=== PATIENT | female | born 1960 | race Caucasian/White ===

== ENCOUNTER 2017-02-07 10:22 | Day surgery (SDC) | payer OTHER ==
[2017-02-05 10:45] VITALS: BMI 28.2
[~2017-02-07 10:22] MED LIST: LACTATED RINGERS 1,000 ML IV SCH
[2017-02-07 10:54] VITALS: RESP 16; TEMP 97.8
[2017-02-07] MEDS ORDERED: LIDOCAINE 1% 20 ML VIAL (10MG/ML) FOR IV START INTRADERMA ONE (11:04)
[2017-02-07] MEDS ORDERED: LIDOCAINE 1% INJ 10MG/ML (20 ML MDV) ONE (11:24)
[2017-02-07] MEDS ORDERED: fentaNYL (PF) 50 MCG/ML 2 ML AMP ONE (11:24)
[2017-02-07] MEDS ORDERED: PROPOFOL 10 MG/ML 20 ML VIAL IV ONE (11:24)
[2017-02-07] MEDS ORDERED: GLYCOPYRROLATE 0.2 MG/ML 2 ML VIAL ONE (11:24)
[2017-02-07] MEDS ORDERED: MIDAZOLAM 2 MG/2 ML VIAL ONE (11:24)
--- NOTE | 2017-02-07 11:29 | P.GSHP ---
History of Present Illness H&P Date: 02/07/17 Chief Complaint: Anemia Patient here today for upper and lower endoscopy. She was told she was anemic. Last colonoscopy 7 years ago or so. She has a history of prior lap band placement. No abdominal pain or heartburn. She has a personal history of breast cancer and strong family history of breast cancer and other malignancies. Past Medical History Past Medical History: Cancer, Hypertension, Thyroid Disorder Additional Past Medical History / Comment(s): ANEMIA. BREAST CANCER RT SIDE History of Any Multi-Drug Resistant Organisms: None Reported Past Surgical History: Appendectomy, Back Surgery, Bariatric Surgery, Breast Surgery, Cholecystectomy, Hysterectomy Additional Past Surgical History / Comment(s): DOUBLE MASTECTOMY WITH RECONSTRUCTION AND BREAST IMPLANTS. LAP BAND 2007. COLONOSCOPY. EGD Past Anesthesia/Blood Transfusion Reactions: No Reported Reaction Smoking Status: Former smoker - Past Family History Mother Family Medical History: Cancer Sister(s) Family Medical History: Cancer Medications and Allergies Home Medications Medication Instructions Recorded Confirmed Type Aspirin [Adult Low Dose Aspirin EC] 81 mg PO DAILY 02/05/17 02/07/17 History Calcium Carbonate/Vitamin D3 1 tab PO DAILY 02/05/17 02/07/17 History [Calcium 500-Vit D3 200 Tablet] Cetirizine HCl [Zyrtec] 10 mg PO DAILY 02/05/17 02/07/17 History Escitalopram Oxalate [Lexapro] 10 mg PO DAILY 02/05/17 02/07/17 History Ferrous Sulfate [Feosol] 325 mg PO DAILY 02/05/17 02/07/17 History Levothyroxine Sodium [Synthroid] 100 mcg PO DAILY 02/05/17 02/07/17 History Lisinopril-Hctz 20-12.5 mg 1 tab PO DAILY 02/05/17 02/07/17 History [Zestoretic 20-12.5] Multivitamins, Thera [Multivitamin 1 tab PO DAILY 02/05/17 02/07/17 History (formulary)] Allergies Allergy/AdvReac Type Severity Reaction Status Date / Time clindamycin Allergy Chest Pain Verified 02/07/17 10:41 Penicillins Allergy Swelling Verified 02/07/17 10:41 cefoxitin [From Mefoxin] AdvReac Rash/Hives Verified 02/07/17 10:41 hydrocortisone AdvReac Rash/Hives Verified 02/07/17 10:41 [From Cortizone-10] Sulfa (Sulfonamide AdvReac Rash/Hives Verified 02/07/17 10:41 Antibiotics) sulfamethoxazole AdvReac Rash/Hives Verified 02/07/17 10:41 [From Bactrim] trimethoprim [From Bactrim] AdvReac Rash/Hives Verified 02/07/17 10:41 Surgical - Exam Vital Signs Temp Pulse Resp BP Pulse Ox 97.8 F 71 16 128/69 100 02/07/17 10:51 02/07/17 10:51 02/07/17 10:51 02/07/17 10:51 02/07/17 10:51 Physical exam: General: Well-developed, well-nourished HEENT: Normocephalic, sclerae nonicteric Abdomen: Nontender, nondistended Extremities: No edema Neuro: Alert and oriented Assessment and Plan (1) Anemia Narrative/Plan: Will proceed with upper and lower endoscopy. Status: Acute
--- NOTE | 2017-02-07 11:55 | P.PCN ---
Date of Procedure: 02/07/17 Preoperative Diagnosis: Postoperative Diagnosis: Procedure(s) Performed: PREOPERATIVE DIAGNOSIS: Anemia POSTOPERATIVE DIAGNOSIS: Mild duodenitis, diverticulosis PROCEDURE: 1. EGD with biopsy 2. Colonoscopy ANESTHESIA: MAC SURGEON: Seven Crum M.D. SPECIMENS: Duodenum ENDOSCOPIC PROCEDURE: The patient was on the endoscopy table in the left decubitus position. The Olympus gastroscope was inserted into the oropharynx and passed under direct visualization to the region of the third portion of the duodenum. From that point the scope was slowly withdrawn inspecting all surfaces carefully. Mild duodenitis was noted. A single biopsy took place. The pylorus was widely patent. The stomach was carefully inspected. There was no visible gastritis present. Retroflexion revealed changes of previous gastric banding. No evidence of erosion was seen. The patient's gastric pouch was slightly larger than expected. The esophagus was then carefully examined. There were no neoplastic inflammatory or polypoid lesions throughout the visualized esophagus. The patient was kept on the endoscopy table in the left decubitus position. The Olympus colonoscope was inserted into the anus and passed under direct visualization to the base of the cecum. The appendiceal orifice was visualized. From that point the scope was slowly withdrawn inspecting all surfaces carefully. There were no neoplastic inflammatory or polypoid lesions throughout the cecum, ascending, transverse, descending, sigmoid and rectum. There was mild to moderate diverticulosis noted throughout the colon. Digital rectal examination was normal. The patient was taken to the recovery room in stable condition per anesthesia guidelines. RECOMMENDATIONS: Await biopsy results. Continue anemia workup Implants: Indications for Procedure: Operative Findings: Description of Procedure:
[2017-02-07 12:34] VITALS: BP 118/76; PULSE 62
== END 2017-02-07 12:39 | disposition home or self-care (01) ==
LOC: ORWHC2ENDO 10:22
PROVIDERS: ATTEND Surgery
DX: K29.80 Duodenitis without bleeding (principal); K57.30 Diverticulosis of large intestine without perforation or abscess without bleeding; D64.9 Anemia, unspecified; Z98.84 Bariatric surgery status; I10 Essential (primary) hypertension; E07.9 Disorder of thyroid, unspecified; Z87.891 Personal history of nicotine dependence; Z79.82 Long term (current) use of aspirin; Z79.899 Other long term (current) drug therapy; Z85.3 Personal history of malignant neoplasm of breast; Z80.3 Family history of malignant neoplasm of breast; Z88.1 Allergy status to other antibiotic agents; Z88.0 Allergy status to penicillin; Z88.2 Allergy status to sulfonamides; Z88.8 Allergy status to other drugs, medicaments and biological substances
CPT/HCPCS: 88305; 45378; 43239; J2250; J2001; J3010; J2704

== ENCOUNTER → 2021-04-10 | Outpatient (CLI) | payer BC, OTHER ==
[2021-04-10 15:46] VITALS: BP 168/90; PULSE 87; TEMP 98.2; BMI 29.3
--- NOTE | 2021-04-10 16:25 | P.BASOAP ---
Subjective Progress Note Date: 04/10/21 Principal diagnosis: Abdominal pain Patient on our service. Underwent previous laparoscopic banding. Patient lately has had heaviness, abdominal pressure, increased flatulence, abdominal pain for the last 3 weeks or so. Slightly better over the last 2 days. No fevers. No change in bowel habits. No rectal bleeding. Underwent EGD and colonoscopy a few years ago. Patient has had increased heartburn. Started [id number] antiacid therapy in the form of Pepcid. Patient denies vomiting or reflux. No dysphagia. She has gained 10 pounds in the last year. She is leaving for [place] in April. She has tried probiotics. Patient with personal history of triple negative breast cancer. Patient with extensive family history of various malignancies. Objective - Vital Signs Vital signs: Vital Signs Temp 98.2 F 04/10/21 15:41 Pulse 87 04/10/21 15:41 Resp BP 168/90 04/10/21 15:41 Pulse Ox Intake & Output 04/09/21 04/10/21 04/10/21 18:59 06:59 18:59 Weight 82.554 kg - Exam Abdomen: Soft, mild diffuse tenderness, nondistended Assessment/Plan (1) Abdominal pain Narrative/Plan: 60-year-old female with abdominal pain. Rule out diverticulitis or other abdominal pathology. Will obtain CT abdomen and pelvis at this time. Continue Pepcid. If symptoms persist and CAT scan normal recommend GI evaluation. This can be performed in [place]. Plan: Date: 04/10/21 Initial Weight: Initial BMI: Current Weight: 82.554 kg Current BMI: 29.3 Type of Surgery: Total Volume in Band: Previous Volume: Volume Removed: Volume Added: Band Size:
== END ==
LOC: BARWHC3 14:32
PROVIDERS: ATTEND Surgery
DX: R10.9 Unspecified abdominal pain (principal); Z88.0 Allergy status to penicillin; Z88.1 Allergy status to other antibiotic agents; Z88.2 Allergy status to sulfonamides; Z88.5 Allergy status to narcotic agent; Z87.891 Personal history of nicotine dependence
CPT/HCPCS: 99211

== ENCOUNTER → 2021-04-25 | Outpatient (CLI) | payer BC ==
[2021-04-25 14:16] LABS: African American GFR (CKD) >90 (>60 ml/min/1.73 sqM); Blood Urea Nitrogen 13 mg/dL (7-17); Non-African American GFR(CKD) >90 (>60 ml/min/1.73 sqM)
--- NOTE | 2021-04-25 14:51 | CT ---
EXAMINATION TYPE: CT abdomen pelvis w con DATE OF EXAM: 04/25/2021 COMPARISON: None INDICATION: Abdominal pain, bloating and gas x couple months. DLP: 871.1 mGycm, Automated exposure control for dose reduction was used. CONTRAST: 100 mL of Isovue M300. Study performed with Oral Contrast TECHNIQUE: Axial images were obtained from above the diaphragm to the pubic rami in the axial plane a t 5 mm thick sections. Reconstructed images are reviewed on the computer in the coronal plane. FINDINGS: Limited CT sections are obtained the lung bases. The lung bases are clear. There is a moderate size hiatal hernia. This could be dilatation of the distal esophagus contains an air-fluid level. This is above the patient's lap band. CT ABDOMEN: Liver: There is a hypodense masslike area at the superior right lobe hepatic cortex measuring 2.1 x 1 .9 cm. Series 3 image 11. This area is not well-defined on the delayed images. There is irregular hyp odensity measuring 5.6 x 1.8 cm within the inferior lateral right lobe liver which has a more homogen ous appearance on delayed images. Series 3 image 24. Findings could be related to hemangioma. MRI wit h contrast however is recommended to evaluate for possible neoplastic mass. Spleen: Normal Pancreas: Normal Adrenal glands: The adrenal glands are normal. Gallbladder: Normal Kidneys: No masses are evident. No hydronephrosis is present. No cysts are present. Delayed images were obtained through the kidneys, which remain unremarkable. Aorta: Normal Inferior vena cava: Normal. CT PELVIS: Loops of bowel within the abdomen and pelvis are normal. Scattered diverticuli within the sigmoid col on. No acute diverticulitis is evident. There are loops of bowel which are incompletely distended or lack oral contrast limiting their evaluation. Appendix: Normal as visualized. Urinary bladder: Normal. Genitourinary structures: Uterus and ovaries are not identified. Osseous structures: No suspicious lytic or sclerotic lesions. IMPRESSIONS: 1. 2 irregular hypodensities within the liver may have some peripheral enhancement but are incomplet ronen enhancing on CT. Consider ultrasound for correlation. MRI with contrast recommended for additiona l workup. Findings may represent hemangiomas. Neoplasm is not excluded on the basis of this exam. 2. Dilated distal esophagus versus hiatal hernia above the level of the lap band. 3. Diverticulosis without acute diverticulitis.
== END | disposition home or self-care (01) ==
LOC: RADCTMAIN 12:38
PROVIDERS: ATTEND Surgery
DX: K76.89 Other specified diseases of liver (principal); K22.8 Other specified diseases of esophagus; K57.30 Diverticulosis of large intestine without perforation or abscess without bleeding
CPT/HCPCS: 82565; 84520; 74177; 36415; Q9967 ×2

== ENCOUNTER → 2021-05-29 | Outpatient (CLI) | payer BC ==
[2021-05-29 16:22] VITALS: BP 148/100; PULSE 91; RESP 16; TEMP 98.1; BMI 29.0
--- NOTE | 2021-05-29 19:47 | P.BASOAP ---
Subjective Progress Note Date: 05/29/21 Principal diagnosis: Morbid obesity Patient returns for evaluation. Had a CAT scan showing some liver lesions. Had a repeat MRI performed just yesterday showing a benign nature to these lesions. CAT scan and MRI apparently also showed possible hiatal hernia versus distal esophageal dilation. Has had some increased reflux lately. No vomiting. Objective - Vital Signs Vital signs: Vital Signs Temp 98.1 F 05/29/21 16:19 Pulse 91 05/29/21 16:19 Resp 16 05/29/21 16:19 BP 148/100 05/29/21 16:19 Pulse Ox Intake & Output 05/29/21 05/29/21 05/30/21 06:59 18:59 06:59 Weight 81.647 kg - Exam Abdomen: Soft, nontender, nondistended Assessment/Plan (1) Morbid obesity Narrative/Plan: Patient with increased reflux and recent CAT scan showing possible esophageal dilation. Will loosen the patient's band at this time. We believe 6.5 cc in band at this time. The patient's lap band port was palpated. The site was aseptically prepped. The Jones needle was advanced into the port. Aspiration took place. A total of 1.5ml of fluid was removed. Pressure was held and a sterile dressing was applied. Plan: Date: 05/29/21 Initial Weight: 108.862 kg Initial BMI: 38.7 Current Weight: 81.647 kg Current BMI: 29.0 Type of Surgery: Total Volume in Band: Previous Volume: Volume Removed: Volume Added: Band Size:
== END ==
LOC: BARWHC3 15:26
PROVIDERS: ATTEND Surgery
DX: E66.01 Morbid (severe) obesity due to excess calories (principal); Z46.51 Encounter for fitting and adjustment of gastric lap band; Z68.29 Body mass index [BMI] 29.0-29.9, adult; Z88.0 Allergy status to penicillin; Z88.1 Allergy status to other antibiotic agents; Z88.2 Allergy status to sulfonamides; Z88.8 Allergy status to other drugs, medicaments and biological substances; Z87.891 Personal history of nicotine dependence
CPT/HCPCS: 99212

== ENCOUNTER → 2021-12-10 | Outpatient (CLI) | payer BC ==
[2021-12-10 14:14] VITALS: BP 144/83; PULSE 78; TEMP 98.1; BMI 32.4
--- NOTE | 2021-12-10 15:10 | P.HPBAR ---
Bariatric H&P - History & Physicial H&P Date: 12/10/21 History & Physicial: Visit/CC: lap band f/u Patient initial contact: Initial weight: 108.862 kg Initial weight in pounds: 240.00 Height: 5 ft 6 in Initial BMI: 38.7 Last weight: Current weight: 91.172 kg Current weight in pounds: 201.00 Current BMI: 32.4 [place] body weight (based on NIH guidelines): 58.967 kg Excess body weight loss: 35.4% The patient is a 61 year-old F who presents for Bariatric Assessment. Patient presents today for LAP-BAND follow-up. She has complaints of hunger she wished to have her band fill. Past Medical History Past Medical History: Cancer, Hypertension, Thyroid Disorder Additional Past Medical History / Comment(s): ANEMIA. BREAST CANCER RT SIDE History of Any Multi-Drug Resistant Organisms: None Reported Past Surgical History: Appendectomy, Back Surgery, Bariatric Surgery, Breast Surgery, Cholecystectomy, Hysterectomy Additional Past Surgical History / Comment(s): DOUBLE MASTECTOMY WITH RECONSTRUCTION AND BREAST IMPLANTS. LAP BAND 2007. COLONOSCOPY. EGD Past Anesthesia/Blood Transfusion Reactions: No Reported Reaction Smoking Status: Never smoker - Past Family History Mother Family Medical History: Cancer Sister(s) Family Medical History: Cancer Surgical - Exam Vital Signs Temp Pulse BP 98.1 F 78 144/83 12/10/21 14:09 12/10/21 14:09 12/10/21 14:09 - General well developed, well nourished, no distress - Eyes PERRL - ENT normal pinna - Neck no masses - Respiratory normal expansion - Cardiovascular Rhythm: regular - Abdomen Abdomen: soft, non tender Bariatric Assessment & Plan Plan: 's LAP-BAND was just. She had 1 mL added to the band. She currently has 5.5 in the band. She will follow-up in 4 weeks. Bariatric Checklist Checklist: Plan: Checklist: EGD: 1. Hiatal hernia: 2. H. Pylori: HgbA1c: Vitamin D: Smoking: Former smoker Primary care physician referral: Psychiatry clearance: Cardiology clearance: Sleep study: Diet journal: VTE risk score: VTE risk level: Rehab needs at discharge:
== END ==
LOC: BARWHC3 13:50
PROVIDERS: ATTEND Surgery
DX: Z46.51 Encounter for fitting and adjustment of gastric lap band (principal); I10 Essential (primary) hypertension; Z88.0 Allergy status to penicillin; Z88.1 Allergy status to other antibiotic agents; Z88.5 Allergy status to narcotic agent; Z88.2 Allergy status to sulfonamides; Z87.891 Personal history of nicotine dependence
CPT/HCPCS: 99212

== ENCOUNTER → 2022-01-14 | Outpatient (CLI) | payer BC ==
[2022-01-14 14:19] VITALS: BP 138/84; PULSE 64; RESP 12; TEMP 97.9; BMI 32.1
--- NOTE | 2022-01-14 14:52 | P.HPBAR ---
Bariatric H&P - History & Physicial H&P Date: 01/14/22 History & Physicial: Visit/CC: lapband fill Patient initial contact: Initial weight: 108.862 kg Initial weight in pounds: 240.00 Height: 5 ft 6 in Initial BMI: 38.7 Last weight: Current weight: 90.265 kg Current weight in pounds: 199.00 Current BMI: 32.1 [place] body weight (based on NIH guidelines): 58.967 kg Excess body weight loss: 37.2% The patient is a 61 year-old F who presents for Bariatric Assessment. Patient presents today for LAP-BAND adjustment. She is currently hungry. Past Medical History Past Medical History: Cancer, Hypertension, Thyroid Disorder Additional Past Medical History / Comment(s): ANEMIA. BREAST CANCER RT SIDE History of Any Multi-Drug Resistant Organisms: None Reported Past Surgical History: Appendectomy, Back Surgery, Bariatric Surgery, Breast Surgery, Cholecystectomy, Hysterectomy Additional Past Surgical History / Comment(s): DOUBLE MASTECTOMY WITH RECONSTRUCTION AND BREAST IMPLANTS. LAP BAND 2007. COLONOSCOPY. EGD Past Anesthesia/Blood Transfusion Reactions: No Reported Reaction Past Psychological History: Anxiety Smoking Status: Never smoker Past Alcohol Use History: Occasional Additional Past Alcohol Use History / Comment(s): QUIT SMOKING 1992 Past Drug Use History: None Reported - Past Family History Mother Family Medical History: Cancer Sister(s) Family Medical History: Cancer Surgical - Exam Vital Signs Temp Pulse Resp BP 97.9 F 64 12 138/84 01/14/22 14:14 01/14/22 14:14 01/14/22 14:14 01/14/22 14:14 - General well developed, well nourished, no distress - Abdomen Abdomen: soft, non tender Bariatric Assessment & Plan Plan: Patient LAP-BAND was adjusted. She had 0.5 mL added to the band. She currently has 6 mL in the band. She'll follow-up in 4 weeks. Bariatric Checklist Checklist: Plan: Checklist: EGD: 1. Hiatal hernia: 2. H. Pylori: HgbA1c: Vitamin D: Smoking: Former smoker Primary care physician referral: Psychiatry clearance: Cardiology clearance: Sleep study: Diet journal: VTE risk score: VTE risk level: Rehab needs at discharge:
== END ==
LOC: BARWHC3 13:21
PROVIDERS: ATTEND Surgery
DX: Z46.51 Encounter for fitting and adjustment of gastric lap band (principal); I10 Essential (primary) hypertension; F41.9 Anxiety disorder, unspecified; Z79.899 Other long term (current) drug therapy; Z87.891 Personal history of nicotine dependence; Z98.84 Bariatric surgery status; Z88.1 Allergy status to other antibiotic agents; Z88.0 Allergy status to penicillin; Z88.2 Allergy status to sulfonamides; Z88.8 Allergy status to other drugs, medicaments and biological substances
CPT/HCPCS: 99212

== ENCOUNTER → 2022-03-04 | Outpatient (CLI) | payer BC ==
[2022-03-04 14:55] VITALS: BP 151/83; PULSE 89; RESP 16; TEMP 98.5; BMI 32.5
--- NOTE | 2022-03-04 15:31 | P.HPBAR ---
Bariatric H&P - History & Physicial H&P Date: 03/04/22 History & Physicial: Visit/CC: band adj Patient initial contact: Initial weight: 108.862 kg Initial weight in pounds: 240.00 Height: 5 ft 6 in Initial BMI: 38.7 Last weight: Current weight: 91.626 kg Current weight in pounds: 202.00 Current BMI: 32.5 [place] body weight (based on NIH guidelines): 58.967 kg Excess body weight loss: 34.5% The patient is a 61 year-old F who presents for Bariatric Assessment. Patient presents today for LAP-BAND adjustment. She currently time. She requested fill her band. Past Medical History Past Medical History: Cancer, Hypertension, Thyroid Disorder Additional Past Medical History / Comment(s): ANEMIA. BREAST CANCER RT SIDE History of Any Multi-Drug Resistant Organisms: None Reported Past Surgical History: Appendectomy, Back Surgery, Bariatric Surgery, Breast Surgery, Cholecystectomy, Hysterectomy Additional Past Surgical History / Comment(s): DOUBLE MASTECTOMY WITH RECONSTRUCTION AND BREAST IMPLANTS. LAP BAND 2007. COLONOSCOPY. EGD Past Anesthesia/Blood Transfusion Reactions: No Reported Reaction Smoking Status: Never smoker - Past Family History Mother Family Medical History: Cancer Sister(s) Family Medical History: Cancer Surgical - Exam Vital Signs Temp Pulse Resp BP 98.5 F 89 16 151/83 03/04/22 14:52 03/04/22 14:52 03/04/22 14:52 03/04/22 14:52 - General well developed, well nourished, moderate distress - Eyes PERRL - ENT normal pinna - Neck no masses - Respiratory normal expansion - Cardiovascular Rhythm: regular - Abdomen Abdomen: soft, non tender Bariatric Assessment & Plan Plan: Patient's LAP-BAND was adjusted. She had 0.5 mL added to the band. She was ill drink without without difficulty. Patient will follow-up in 4 weeks. Bariatric Checklist Checklist: Plan: Checklist: EGD: 1. Hiatal hernia: 2. H. Pylori: HgbA1c: Vitamin D: Smoking: Former smoker Primary care physician referral: Psychiatry clearance: Cardiology clearance: Sleep study: Diet journal: VTE risk score: VTE risk level: Rehab needs at discharge:
== END ==
LOC: BARWHC3 13:28
PROVIDERS: ATTEND Surgery
DX: Z46.51 Encounter for fitting and adjustment of gastric lap band (principal); I10 Essential (primary) hypertension; Z87.891 Personal history of nicotine dependence; Z88.1 Allergy status to other antibiotic agents; Z88.0 Allergy status to penicillin; Z88.2 Allergy status to sulfonamides; Z88.5 Allergy status to narcotic agent
CPT/HCPCS: 99212